=== PATIENT | female | born 1995 | race Caucasian/White ===

== ENCOUNTER 2025-03-31 12:04 | Emergency (ER) | payer OTHER ==
[~2025-03-31] VITALS: Ht 154.9 cm; Wt 86.0 kg
[2025-03-31 12:15] VITALS: O2SAT 98
[2025-03-31] MEDS: IBUPROFEN 600MG TABLET PO ONE (13:05)
[2025-03-31 13:15] LABS: BASOPHILS % 0.5 % (0.0-2.0); EOSINOPHILS % 2.7 % (0.0-5.0); HEMATOCRIT. 39.7 % (36.0-48.0); HEMOGLOBIN. 13.3 g/dL (12.0-16.0); LYMPHOCYTES % 27.6 % (20.0-50.0); MEAN PLATELET VOLUME 9.3 fl (7.4-10.4); MONOCYTES % 6.1 % (2.0-8.0); NEUTROPHILS % 63.1 % (40.0-76.0); PLATELET 247 x1000/uL (130-400); RED BLOOD CELL COUNT 4.40 mill/uL (4.2-5.4); RED CELL DISTRIBUTION WIDTH 12.3 % (11.6-14.6)
[2025-03-31 13:29] LABS: CREATININE 0.9 mg/dL (0.6-1.0)
[2025-03-31 13:30] LABS: UREA NITROGEN BLOOD 13 mg/dL (9-23)
[2025-03-31 13:31] LABS: TROPONIN I HIGH SENSITIVITY < 4 ng/L (3.0-34)
[2025-03-31 14:24] VITALS: BP 147/87; PULSE 65; RESP 16; TEMP 36.7; O2SAT 100
== END 2025-03-31 14:25 | disposition home or self-care (01) ==
LOC: ER 12:04
DX: R07.89 Other chest pain (principal); E78.00 Pure hypercholesterolemia, unspecified; Z90.49 Acquired absence of other specified parts of digestive tract; Z79.899 Other long term (current) drug therapy
CPT/HCPCS: 36415; 71045; 80048; 84484; 85025; 93005; 99285